=== PATIENT | male | born 1990 | race Caucasian/White ===

== ENCOUNTER 2023-07-23 23:05 | Emergency (ER) | payer OTHER ==
[~2023-07-23] VITALS: Ht 177.8 cm; Wt 113.4 kg
[2023-07-23 23:49] VITALS: BP 148/76; PULSE 88; RESP 20; TEMP 97; O2SAT 100
[2023-07-24] MEDS ORDERED: NACL 0.9% 1,000 ML IV SCH (00:05)
[2023-07-24] MEDS ORDERED: KETOROLAC 30 MG/ML VIAL IVP ONE (00:05)
[2023-07-24] MEDS ORDERED: TAMSULOSIN 0.4 MG CAP PO SCH (00:05)
[2023-07-24 00:58] LABS: APPEARANCE,URINE CLEAR (CLEAR); BILIRUBIN,URINE NEGATIVE (NEGATIVE); BLOOD, URINE 3+ (NEGATIVE); COLOR,URINE YELLOW (YELLOW); LEUKOCYTE ESTERASE ,URINE NEGATIVE (NEGATIVE); NITRITE, URINE NEGATIVE (NEGATIVE); PROTEIN,URINE 1+ (NEGATIVE); UGLUCOSE NEGATIVE (NEGATIVE); UROBILINOGEN,URINE 0.2 EU/dL (0.2 - 1)
[2023-07-24 01:25] LABS: BACTERIA,URINE 1+ /HPF (None Seen); RBC,URINE 11-20 (MOD) /HPF (0-5); WBC,URINE 0-5 /HPF (0-5)
[2023-07-24 01:26] LABS: SQUAMOUS EPITHELIAL CELL,UR 0-3 (FEW) /LPF (0-3 (FEW))
[2023-07-24 01:56] LABS: BASOPHILS % (AUTO) 0.1 % (0.0-2.0); HEMATOCRIT 43.2 % (36-52); HEMOGLOBIN 14.6 g/dL (12.0-18.0); LYMPHOCYTES # (AUTO) 1.4 K/uL (2.0-11.5); LYMPHOCYTES % (AUTO) 9.9 % (20.5-51.1); MEAN CORPUSCULAR HEMOGLOBIN 31 pg (27-31); MEAN CORPUSCULAR HGB CONC 34 g/dL (33-37); MEAN CORPUSCULAR VOLUME 91.1 fL (80-94); MONOCYTES # (AUTO) 0.4 K/uL (0.8-1.0); MONOCYTES % (AUTO) 2.5 % (1.7-9.3); NEUTROPHILS # (AUTO) 12.3 K/uL (1.8-7.7); NEUTROPHILS % (AUTO) 87.5 % (42.2-75.2); PLATELET COUNT (AUTO) 402 K/uL (140-450); RED BLOOD CELL COUNT(AUTO) 4.75 MIL/uL (4.20-6.10); RED CELL DISTRIBUTION WIDTH 13.6 % (11.6-13.7)
[2023-07-24 02:18] LABS: ALBUMIN 4.7 g/dL (3.4-5.0); CALCIUM 9.6 mg/dL (8.5-10.1); CARBON DIOXIDE 29.4 mmol/L (21-32); CREATININE 1.2 mg/dL (0.6-1.3); POTASSIUM 3.4 mmol/L (3.5-5.1); TOTAL BILIRUBIN 1.2 mg/dL (0.0-1.0); TOTAL PROTEIN, SERUM 8.6 g/dL (6.4-8.2)
[2023-07-24 03:26] LABS: LACTIC ACID 0.8 mmol/L (0.4-2.0)
[2023-07-24] MEDS ORDERED: CEPH-588 PO (04:18)
[2023-07-24] MEDS ORDERED: NAPR-1704 PO (04:18)
[2023-07-24] MEDS ORDERED: TAMS0.4C96 PO (04:18)
[2023-07-24 04:34] VITALS: BP 148/76; PULSE 88; RESP 20; TEMP 97; O2SAT 100
== END 2023-07-24 04:30 | disposition home or self-care (01) ==
LOC: MED 23:05 → EDBD 23:05 → MED 07-24 04:30
DX: N13.2 Hydronephrosis with renal and ureteral calculous obstruction (principal); D72.829 Elevated white blood cell count, unspecified; F12.90 Cannabis use, unspecified, uncomplicated; Z79.899 Other long term (current) drug therapy; Z79.1 Long term (current) use of non-steroidal anti-inflammatories (NSAID); Z79.2 Long term (current) use of antibiotics
CPT/HCPCS: 36415; 74176; 80053; 81001; 82550; 83605; 85025; 87040; 87086; 96361; 96374; 99285; J1885; J7030

== ENCOUNTER 2024-06-13 05:05 | Emergency (ER) | payer OTHER ==
[~2024-06-13] VITALS: Ht 175.3 cm; Wt 104.3 kg
[~2024-06-13 05:05] MED LIST: CEPH-588 PO; NAPR-1704 PO; TAMS0.4C96 PO
[2024-06-13 05:07] VITALS: BP 149/87; PULSE 64; RESP 18; TEMP 98; O2SAT 99
[2024-06-13] MEDS: LIDOCAINE 5% 1 EA PATCH TP ONE (05:45)
[2024-06-13] MEDS: KETOROLAC 30 MG/ML VIAL IM ONE (05:45)
[2024-06-13] MEDS ORDERED: LID5T TP (06:04)
[2024-06-13] MEDS ORDERED: IBUP-2213 PO (06:04)
[2024-06-13] MEDS ORDERED: DICL100G32 TP (06:04)
[2024-06-13 06:46] VITALS: BP 141/86; PULSE 73; RESP 18; TEMP 97.8; O2SAT 99
== END 2024-06-13 06:46 | disposition home or self-care (01) ==
LOC: MED 05:05
DX: S20.211A Contusion of right front wall of thorax, initial encounter (principal); Z79.1 Long term (current) use of non-steroidal anti-inflammatories (NSAID); Z79.899 Other long term (current) drug therapy; X50.9XXA Other and unspecified overexertion or strenuous movements or postures, initial encounter; Y93.89 Activity, other specified; Y92.89 Other specified places as the place of occurrence of the external cause; Y99.0 Civilian activity done for income or pay
CPT/HCPCS: 71101; 96372; 99283; J1885